=== PATIENT | female | born 1970 | race Caucasian/White ===

== ENCOUNTER 2018-04-01 11:58 | Outpatient (REF) | payer MEDICAID, SELFPAY ==
[2018-04-01 19:34] LABS: Anion Gap 12.6 mmol/L (3-11); BUN 12 mg/dL (7-18); CO2 22.4 mmol/L (21.0-32.0); CREATININE 0.84 mg/dL (0.55-1.02); Calcium 9.1 mg/dL (8.5-10.1); Chloride 104 mmol/L (98-107); Cholesterol 215 mg/dL (50-200); Glucose 108 mg/dL (70-100); HDL Cholesterol 58 mg/dL (40-60); LDL CHOLESTEROL 146 mg/dL (<100); Magnesium 1.8 mg/dL (1.8-2.4); Potassium 3.9 mmol/L (3.5-5.1); Sodium 139 mmol/L (136-145); TSH 2.03 uIU/mL (0.358-3.74); Triglyceride 86 mg/dL (30-150)
== END 2018-04-01 12:18 ==
LOC: NCHCN 11:58
PROVIDERS: PCP Physician Assistant; Visit Provider Internal Medicine
DX: I10 Essential (primary) hypertension (principal); I49.1 Atrial premature depolarization; E66.3 Overweight; Z00.00 Encounter for general adult medical examination without abnormal findings
CPT/HCPCS: 80048; 80061; 83721; 83735; 84443

== ENCOUNTER 2018-05-05 08:45 | Outpatient (REF) | payer MEDICAID, SELFPAY | END 2018-05-05 09:05 | LOC: NCHCN 08:45 | PROVIDERS: PCP Physician Assistant; Visit Provider Physician Assistant Medical | DX: N39.0 Urinary tract infection, site not specified (principal) | CPT/HCPCS: 87086 ==

== ENCOUNTER 2020-02-29 10:42 | Outpatient (REF) | payer MEDICAID, SELFPAY ==
[2020-02-29 21:30] LABS: Abs Immature Grans 0.01 10^3/uL (0.0-0.06); Absolute Basophil Count 0.04 10^3/uL (0.0-0.2); Absolute Eosinophil Count 0.16 10^3/uL (0.0-0.7); Absolute Lymphocyte Count 1.31 10^3/uL (1.2-3.4); Absolute Monocyte Count 0.23 10^3/uL (0.1-0.8); Absolute Neutrophil Count 2.35 10^3/uL (1.2-6.7); Eosinophils % 3.9; HCT 35.5 % (36.0-46.0); HGB 11.6 g/dL (11.2-15.7); Immature Grans % 0.2; MCHC 32.7 % (32.0-36.0); MCV 85.7 fL (80-95); MPV 12.8 fL (8.0-11.0); Monocytes % 5.6; Neutrophils % 57.3; Nucleated RBC 0 %; Platelet Count 217 10^3/uL (130-400); RBC 4.14 10^6/uL (3.93-5.22); RDW 12.4 % (11.7-14.6); RDW-SD 38.9 fL
[2020-02-29 21:57] LABS: ALT 26 U/L (14-59); AST 15 U/L (15-37); Albumin 3.8 g/dL (3.4-5.0); Alkaline Phosphatase 77 U/L (46-116); Anion Gap 12.8 mmol/L (3-11); BUN 12 mg/dL (7-18); Bilirubin, Total 0.5 mg/dL (0.2-1.0); CO2 24.2 mmol/L (21.0-32.0); CREATININE 0.79 mg/dL (0.55-1.02); Calcium 9.3 mg/dL (8.5-10.1); Chloride 102 mmol/L (98-107); Glucose 99 mg/dL (74-106); Potassium 4.2 mmol/L (3.5-5.1); Sodium 139 mmol/L (136-145); Total Protein 7.4 g/dL (6.4-8.2)
[2020-02-29 22:01] LABS: Hemoglobin A1C 6.3 % (3.8-5.6)
[2020-03-01 10:07] LABS: Calculated LDL 108 mg/dL (<100); Cholesterol 180 mg/dL (<200); HDL Cholesterol 56 mg/dL (40-60); Triglyceride 81 mg/dL (<150)
== END 2020-02-29 11:02 ==
LOC: NCHCN 10:42
PROVIDERS: PCP Physician Assistant; Visit Provider Physician Assistant
DX: R73.03 Prediabetes (principal); I10 Essential (primary) hypertension; E07.9 Disorder of thyroid, unspecified
CPT/HCPCS: 80053; 80061; 83036; 84443; 85025

== ENCOUNTER 2021-12-20 11:39 | Emergency (ER) | payer MEDICAID, SELFPAY ==
--- NOTE | 2021-12-20 11:45 | RT.EKG_ITS ---
APPROVED REPORT Exam: Resting ECG Reason for Exam: DIZZINESS Patient Location: E HR:76 bpm ECG Measurements Heart Rate 76 AXIS NC 135 P 72 QRSd 89 QRS 25 QT 400 T 34 QTc 451 Conclusion Sinus rhythm...normal P axis, V-rate 60- 99 sinus rhythm, normal axis normal intervals, non ischemic
[2021-12-20 11:48] VITALS: BP 159/94; PULSE 78; RESP 16; TEMP 36.6; O2SAT 100
[2021-12-20] MEDS: Meclizine 25 MG TAB PO (12:41)
[2021-12-20] MEDS: Dexamethasone 10 MG/ML VIAL IM (12:41)
--- NOTE | 2021-12-20 12:42 | ED.GENADUL_ITS ---
Discharge Plan Disposition Patient Disposition: HOME Condition: Improving Discharge Details Chief Complaint: Dizzy/Sync Clinical Impression: Dizziness Primary Care Provider: Gabriel Zamorano ED Provider: Lewis Avila Home Meds and New Rx's Prescriptions: No Action lisinopril 40 mg tablet 40 mg PO DAILY cholecalciferol (vitamin D3) 125 mcg (5,000 unit) capsule 5,000 unit PO .every other day valacyclovir 500 mg tablet 500 mg PO DAILY Curcumin 95 % Powder MISCELLANEOUS multivit w/xkjn-tuz-FD-acemann Tablet PO copper 2 mg Tablet PO Probiotic 3 billion cell Capsule Discharge Instructions Instructions: Dizziness (ED) Additional Instructions: Please follow-up with neurology as scheduled. Please take your medications as prescribed. Please return the emergency room if you develop worsening symptoms such as worsening dizziness nausea vomiting headache fevers or any other abnormal symptoms. Medical Decision Making 51-year-old female presents with worsening dizziness that began yesterday associated nausea and vomiting, took meclizine and Zofran with some resolution of symptoms however still having some spinning sensation, resolved by lying flat, lateral nystagmus to the left, cranial nerves II to XII intact, normal speech normal sensation 5 out of 5 strength upper and lower extremities, no truncal ataxia, bilateral cerumen impaction and TMs, patient does endorse some ringing in her ear over the past several weeks. High clinical suspicion for peripheral vertigo. Low suspicion for central vertigo/CVA. Alert and oriented nontoxic. Low suspicion for electrolyte normality or cardiac process or infectious etiology. Will complete dose of meclizine by adding 25 mg p.o. and will also give IM dose of dexamethasone for anti-inflammatory and antiemetic properties. Close reassessment of symptoms. If not improving consider labs and imaging. 16: 11 patient resting comfortably feeling better after fluids benzo meclizine and dexamethasone. Sitting upright without issue. Ambulatory without assistance. No vomiting in department. CT CTA head neck negative. Will be given neurology follow-up as an outpatient. Likely resolving peripheral vertigo. Patient has meclizine at home that she will continue to take as well as Zofran. Given strict return precautions. HPI General Date/Time Provider Initiated Documentation: 12/20/21 12:31 . HPI Narrative: 51-year-old female presents with worsening dizziness nausea and vomiting over the past day, worse with movement improved with rest, denies change in speech weakness numbness tingling. Took 25 mg of meclizine this morning and Zofran which helped slightly still having symptomatology. Related Data Home Medications Medication Instructions Recorded Confirmed cholecalciferol (vitamin D3) 125 5,000 unit PO .every other day 12/24/20 12/20/21 mcg (5,000 unit) capsule lisinopril 40 mg tablet 40 mg PO DAILY 12/24/20 12/20/21 valacyclovir 500 mg tablet 500 mg PO DAILY 12/24/20 12/25/20 copper 2 mg tablet mg PO 12/20/21 lactobacillus combination no.4 3 12/20/21 billion cell capsule (Probiotic) multivit with [id number]-bvo-quxts tab PO 12/20/21 acids-acemannan tablet turmeric (bulk) 95 % powder pwd miscellaneous 12/20/21 (Curcumin) Allergies Allergy/AdvReac Type Severity Reaction Status Date / Time sulfamethoxazole Allergy Severe Verified 12/20/21 11:53 [From Bactrim] trimethoprim [From Bactrim] Allergy Severe Verified 12/20/21 11:53 erythromycin base Allergy Unknown Verified 12/20/21 11:53 codeine Allergy Verified 12/20/21 11:53 Penicillins Allergy Verified 12/20/21 11:53 Sulfa (Sulfonamide Allergy Verified 12/20/21 11:53 Antibiotics) General Stated Complaint: Dizzy/Sync GEETA: 2 Review of Systems Narrative: Review of Systems Constitutional: negative Eyes: negative ENT: negative Cardiovascular: negative Respiratory: negative Gastrointestinal: Nausea vomiting : negative Musculoskeletal: negative Skin: negative Neurologic: Dizziness Psych: negative PFSH All Active Problems (Updated 12/20/21 @ 16:12 by Lewis Avila MD) Dizziness (Acute) Internal derangement of right knee (Acute) Medical History (Updated 12/20/21 @ 16:12 by Lewis Avila MD) Cervical radiculopathy Family history of colon cancer MGM Hypertension Knee pain, right Obesity (BMI 30.0-34.9) Prediabetes Varicose veins of left lower extremity with pain Social History (Updated 12/24/20 @ 13:14 by Shawanda Burgos RN, RN) Smoking/Tobacco Use Status: Never Smoking risk assessment performed?: Yes Substance use type: does not use Do you feel safe at home: Yes Do you feel safe in your relationship?: Yes Exam Narrative Exam Narrative: Physical Examination General: alert, awake, cooperative, resting comfortably, no acute distress HEENT: normocephalic, atraumatic; PERRL, EOM intact, conjunctiva normal; no nasal discharge; moist mucous membranes, oral and pharyngeal mucosa normal, tolerating secretions Neck: supple, trachea midline; full ROM Chest: normal to inspection Respiratory: normal respiratory effort, speaking in full sentences, clear to auscultation, no wheezing, rales or rhonchi Cardiac: regular rate, regular rhythm, S1S2 intact, no murmurs rubs or gallops GI: abdomen soft, non-tender, non-distended; no palpable mass or hepatosplenomegaly Skin: no lesions, rashes or trauma appreciated Neuro: AAOx3, normal speech, moving all extremities; lateral nystagmus to the left, 5 out of 5 strength upper and lower extremities, no truncal ataxia, sensation intact in all extremities normal speech cranial nerves II through XII intact Psych: Appropriate mood and affect Course Vital Signs Vital signs: Vital Signs Temperature 36.6 C 12/20/21 11:48 Pulse 78 12/20/21 11:48 Respiratory Rate 16 12/20/21 11:48 Blood Pressure 159/94 H 12/20/21 11:48 Pulse Oximetry 100 12/20/21 11:48 Temperature 36.6 C 12/20/21 11:48 Temperature Source Temporal Artery Scan 12/20/21 11:48 Pulse 78 12/20/21 11:48 Respiratory Rate 16 12/20/21 11:48 Blood Pressure 159/94 H 12/20/21 11:48 Blood Pressure Position Sitting 12/20/21 11:48 Pulse Oximetry 100 12/20/21 11:48 Oxygen Delivery Method Room Air 12/20/21 11:48 Oxygen Flow Rate 0 12/20/21 11:48 Pain Level 0 12/20/21 11:48
[2021-12-20 12:44] VITALS: RESP 16
[2021-12-20] MEDS: Normal Saline 1,000 ML 1000 ML IV ×2 (13:25→14:36)
[2021-12-20 13:41] LABS: Abs Immature Grans 0.01 10^3/uL (0.0-0.06); Absolute Basophil Count 0.03 10^3/uL (0.0-0.2); Absolute Eosinophil Count 0.04 10^3/uL (0.0-0.7); Absolute Lymphocyte Count 1.84 10^3/uL (1.2-3.4); Absolute Neutrophil Count 4.85 10^3/uL (1.2-6.7); Basophils % 0.4; Eosinophils % 0.6; HCT 36.1 % (36.0-46.0); HGB 12.2 g/dL (11.2-15.7); Immature Grans % 0.1; Lymphocytes % 25.7; MCH 29.4 pg (27.0-33.0); MCHC 33.8 % (32.0-36.0); MCV 87 fL (80-95); MPV 11.5 fL (8.0-11.0); Monocytes % 5.6; Neutrophils % 67.6; Platelet Count 231 10^3/uL (130-400); RBC 4.15 10^6/uL (3.93-5.22); RDW 13.2 % (11.7-14.6); RDW-SD 41.3 fL; WBC 7.17 10^3/uL (4.4-10.8)
[2021-12-20 14:12] LABS: ALT 14 U/L (14-59); AST 14 U/L (15-37); Albumin 3.7 g/dL (3.4-5.0); Alkaline Phosphatase 100 U/L (46-116); Anion Gap 12.6 mmol/L (3-11); BUN 9 mg/dL (7-18); Bilirubin, Total 0.7 mg/dL (0.2-1.0); CO2 22.4 mmol/L (21.0-32.0); CREATININE 0.8 mg/dL (0.55-1.02); Calcium 9.2 mg/dL (8.5-10.1); Chloride 103 mmol/L (98-107); Glucose 99 mg/dL (74-106); Potassium 3.3 mmol/L (3.5-5.1); Sodium 138 mmol/L (136-145); Total Protein 7.6 g/dL (6.4-8.2)
--- NOTE | 2021-12-20 14:25 | DI.CT_ITS ---
Exam(s) CT BRAIN NECK CTA EXAM: CT BRAIN NECK CTA CLINICAL HISTORY: unresolved dizziness. TECHNIQUE: Imaging Protocol: Axial CT angiography was performed with multi-slice acquisition and mu lti-planar and/or 3D reconstructions. CONTRAST MATERIAL: Intravenous: Isovue 370 contrast volume:100 mL COMPARISON: No exams were available for comparison FINDINGS: CT Head W/O and W: Ventricles and Extra axial spaces: Normal in size and morphology for the patient's age. Hemorrhage: None. Cerebral parenchyma: No acute territorial infarct. Midline shift: None. Brainstem/Cerebellum: Normal. Calvarium: Normal. Visualized Paranasal sinuses/Mastoids: There is mucosal thickening in the maxillary sinuses bilateral ly. There is an air-fluid level in the right maxillary sinus. There is opacification of a few ethmo id air cells. There is mild mucosal thickening in the right frontal sinus. Soft Tissues: Unremarkable. Enhancement: Unremarkable. CTA Neck W: Common Carotid: Right: No dissection, occlusion or significant stenosis. Mild atherosclerosis in the distal right co mmon carotid artery. Left: No dissection, occlusion or significant stenosis. External Carotid: Right: No occlusion or significant stenosis. Left: No occlusion or significant stenosis. Internal Carotid: Right: No dissection, occlusion or significant stenosis. Left: No dissection, occlusion or significant stenosis. Vertebral Artery: Right: No dissection, occlusion or significant stenosis. Left: No dissection, occlusion or significant stenosis. Lung Apices: Normal. Bones: Within normal limits for the patient's age. Pxby-vq-xlvvzyqv degenerative changes are seen in the cervical spine. Soft Tissues: Normal. Thyroid gland: Unremarkable. CTA Brain W: Internal Carotid Arteries: Normal. Anterior Cerebral Arteries: Right: No aneurysm, occlusion or significant stenosis. Left: No aneurysm, occlusion or significant stenosis. Middle Cerebral Arteries: Right: No aneurysm, occlusion or significant stenosis. Left: No aneurysm, occlusion or significant stenosis. Posterior Cerebral Arteries: Right: No aneurysm, occlusion or significant stenosis. Left: No aneurysm, occlusion or significant stenosis. Vertebral Arteries: Right: No aneurysm, occlusion or significant stenosis. Left: No aneurysm, occlusion or significant stenosis. Basilar Artery: No aneurysm, occlusion or significant stenosis. IMPRESSION: 1. No large vessel occlusion or significant stenosis on the CT angiography of the head. 2. No acute intracranial process. 3. No occlusion or significant stenosis on the CT angiography of the neck. 4. Results of this exam have been verbally communicated with provider. RADIATION DOSE DELIVERED: 1,966.18mGy.cm Total DLP DATA REPOSITORY: All CT scans at this facility are submitted to the National Radiology Data Registry (NRDR) Dose Index Registry (DIR) with the [employer] (A[employer]). RADIATION OPTIMIZATION: All CT scans at this facility use at least one of these dose optimization te chniques: automated exposure control; mA and/or kV adjustment per patient size (includes targeted exa ms where dose is matched to clinical indication); or iterative reconstruction.
[2021-12-20] MEDS: LORazepam 2 MG/ML VIAL 1 MG IVP (14:36)
[2021-12-20] MEDS: Normal Saline Flush 10 ML SYR IVP (14:46)
--- NOTE | 2021-12-20 16:17 | NUR.NOTE ---
Nursing Note: PT INFO FAXED TO NEUROLOGY TO BE SEEN NEXT WEEK FOR VERTIGO. AXEL, ED
== END 2021-12-20 16:26 | disposition home or self-care (01) ==
PROVIDERS: Emergency Provider Emergency Medicine; PCP Internal Medicine
DX: R42 Dizziness and giddiness (principal)
CPT/HCPCS: 36415; 70496; 70498; 80053; 93005; 96361; 96372; 96374; 99285; 85025; 93010; 99284; J1100; J2060

== ENCOUNTER 2022-01-15 16:45 | Outpatient (REF) | payer MEDICAID, SELFPAY ==
[2022-01-16 18:07] LABS: Rheumatoid Factor <8.6 IU/mL (<12.0)
[2022-01-17 14:29] LABS: ANA Interpretation Negative (Negative)
== END 2022-01-15 16:46 | disposition home or self-care (01) ==
LOC: NCHCN 16:45
PROVIDERS: PCP Internal Medicine; Visit Provider Nurse Practitioner Family
DX: R42 Dizziness and giddiness (principal)
CPT/HCPCS: 86038; 86431

== ENCOUNTER 2022-11-13 19:14 | Outpatient (REF) | payer MEDICAID, SELFPAY ==
[2022-11-13 19:31] LABS: Absolute Basophil Count 0.03 10^3/uL (0.0-0.2); Absolute Eosinophil Count 0.11 10^3/uL (0.0-0.7); Absolute Lymphocyte Count 1.69 10^3/uL (1.2-3.4); Absolute Monocyte Count 0.19 10^3/uL (0.1-0.8); Absolute Neutrophil Count 2.59 10^3/uL (1.2-6.7); Basophils % 0.7; Eosinophils % 2.4; HCT 33.7 % (36.0-46.0); HGB 11.3 g/dL (11.2-15.7); Lymphocytes % 36.7; MCH 29.7 pg (27.0-33.0); MCHC 33.5 % (32.0-36.0); MCV 89 fL (80-95); MPV 12.5 fL (8.0-11.0); Monocytes % 4.1; Neutrophils % 56.1; Platelet Count 215 10^3/uL (130-400); RDW 12.4 % (11.7-14.6); RDW-SD 40.3 fL; WBC 4.61 10^3/uL (4.4-10.8)
[2022-11-13 19:54] LABS: ALT 31 U/L (14-59); AST 22 U/L (15-37); Albumin 3.7 g/dL (3.4-5.0); Alkaline Phosphatase 101 U/L (46-116); Anion Gap 9.8 mmol/L (3-11); BUN 12 mg/dL (7-18); Bilirubin, Total 0.3 mg/dL (0.2-1.0); CO2 25.2 mmol/L (21.0-32.0); CREATININE 0.9 mg/dL (0.55-1.02); Calcium 9.1 mg/dL (8.5-10.1); Chloride 104 mmol/L (98-107); Estimated GFR 75.97 (mL/min/1.73m2); Glucose 96 mg/dL (74-106); Potassium 3.8 mmol/L (3.5-5.1); Sodium 139 mmol/L (136-145); Total Protein 7.6 g/dL (6.4-8.2)
== END 2022-11-13 19:15 | disposition home or self-care (01) ==
LOC: NCHCN 19:14
PROVIDERS: PCP Internal Medicine; Visit Provider Physician Assistant
DX: I10 Essential (primary) hypertension (principal)
CPT/HCPCS: 80053; 85025

== ENCOUNTER 2023-11-11 09:55 | Outpatient (REF) | payer MEDICAID, SELFPAY ==
[2023-11-11 22:21] LABS: Absolute Basophil Count 0.03 10^3/uL (0.0-0.2); Absolute Lymphocyte Count 1.11 10^3/uL (1.2-3.4); Absolute Neutrophil Count 2.11 10^3/uL (1.2-6.7); Basophils % 0.8 %; Eosinophils % 2.8 %; HCT 34.5 % (36.0-46.0); HGB 11.3 g/dL (11.2-15.7); Lymphocytes % 31.3 %; MCHC 32.8 % (32.0-36.0); MCV 89 fL (80-95); MPV 12.5 fL (8.0-11.0); Monocytes % 5.6 %; Neutrophils % 59.5 %; Platelet Count 214 10^3/uL (130-400); RBC 3.89 10^6/uL (3.93-5.22); RDW-SD 42.6 fL; WBC 3.55 10^3/uL (4.4-10.8)
[2023-11-11 22:43] LABS: Hemoglobin A1C 6.1 % (<5.7)
[2023-11-11 22:56] LABS: ALT 36 U/L (14-59); AST 20 U/L (15-37); Albumin 3.8 g/dL (3.4-5.0); Alkaline Phosphatase 106 U/L (46-116); Anion Gap 9.1 mmol/L (3-11); BUN 13 mg/dL (7-18); Bilirubin, Total 0.5 mg/dL (0.2-1.0); CO2 26.9 mmol/L (21.0-32.0); CREATININE 0.8 mg/dL (0.55-1.02); Calcium 9.3 mg/dL (8.5-10.1); Calculated LDL 132 mg/dL (<100); Chloride 104 mmol/L (98-107); Cholesterol 214 mg/dL (<200); Estimated GFR 86.96 (mL/min/1.73m2); Glucose 99 mg/dL (74-106); HDL Cholesterol 67 mg/dL (40-60); Potassium 3.9 mmol/L (3.5-5.1); Sodium 140 mmol/L (136-145); TSH (W/Ref FT4) 1.73 uIU/mL (0.36-3.74); Total Protein 7.4 g/dL (6.4-8.2); Triglyceride 79 mg/dL (<150)
[2023-11-12 18:54] LABS: Thyroperoxidase Antibody 43 U/mL (<=60)
[2023-11-17 13:02] LABS: Thyroglobulin Antibody 67 U/mL (<=60)
== END 2023-11-11 09:56 | disposition home or self-care (01) ==
LOC: NCHCN 09:55
PROVIDERS: PCP Internal Medicine; Visit Provider Physician Assistant
DX: I10 Essential (primary) hypertension (principal); R73.03 Prediabetes; E07.9 Disorder of thyroid, unspecified
CPT/HCPCS: 80053; 80061; 83036; 84443; 85025; 86376; 86800

== ENCOUNTER 2024-12-21 22:06 | Outpatient (REF) | payer MEDICAID, SELFPAY ==
--- NOTE | 2024-12-21 10:40 | SKI_PTH ---
PATIENT: Olesya Arevalo I LOC: [facility]#:[id number] AGE/SX: 54/F ROOM: RE12/21/[address]: Sada Toth : 1970 BED: DIS: 12/21/2024 SPEC #: [id number] RECD: 12/22/24 12:42 STATUS: MARK REJanell #: [id number] RICKI: 12/21/24 10:[address]: Sada Toth DEPT: Surgical Specimen RECD BY: Odalis Adrian ENTERED: 12/22/24 12:43 SP TYPE: LESLYE BONILLA DR: Gabriel Zamorano Tissues: 1 - SKIN BIOPSY(SHAVE/PUNCH) Procedures: SKIN LEVEL 4 Comments: [id number]
== END 2024-12-21 22:07 | disposition home or self-care (01) ==
LOC: NCHCN 22:06
PROVIDERS: PCP Internal Medicine; Visit Provider Physician Assistant
DX: L81.4 Other melanin hyperpigmentation (principal); D48.5 Neoplasm of uncertain behavior of skin
CPT/HCPCS: 88305

== ENCOUNTER 2025-06-28 13:14 | Outpatient (REF) | payer BC, SELFPAY ==
[2025-06-28 21:41] LABS: TSH (W/Ref FT4) 1.51 uIU/mL (0.55-4.78)
[2025-06-28 21:48] LABS: ALT 15 U/L (10-49); AST 20 U/L (<34); Albumin 4.3 g/dL (3.2-5.0); Alkaline Phosphatase 99 U/L (46-116); Anion Gap 9.9 mmol/L (3-11); BUN 10 mg/dL (9-23); Bilirubin, Total 0.6 mg/dL (0.2-1.2); CO2 22.1 mmol/L (20.0-31.0); Calcium 9.3 mg/dL (8.3-10.6); Chloride 111 mmol/L (98-107); Cholesterol 202 mg/dL (<200); Glucose 94 mg/dL (74-106); HDL Cholesterol 55 mg/dL (>or=50); Potassium 4.4 mmol/L (3.5-5.1); Sodium 143 mmol/L (136-145); Total Protein 7.2 g/dL (5.7-8.2)
== END 2025-06-28 13:15 | disposition home or self-care (01) ==
LOC: NCHCN 13:14
PROVIDERS: PCP Internal Medicine; Visit Provider Physician Assistant
DX: I10 Essential (primary) hypertension (principal); E07.9 Disorder of thyroid, unspecified
CPT/HCPCS: 80053; 80061; 84443